=== PATIENT | male | born 1980 | race Caucasian/White ===

== ENCOUNTER 2017-01-06 02:03 | Emergency (ER) | payer OTHER ==
[~2017-01-06] VITALS: Ht 175.3 cm; Wt 136.1 kg
--- NOTE | ~2017-01-06 | CR63 ---
[facility]. [facility] A Service [facility] RADIOLOGY TEXT RESULTS PATIENT: ENDY MASON LOCATION: SED : 82 UNIT #: [id number] AGE: [address]: Kris Perez MD SEX: M ORDER DR: [id number] [place] [id number] E MR#: [id number] Acc #: [id number] NAME: ENDY MASON : 1980 SEX: M STUDY DATE/TIME: 01/06/2017 2:30 UNIT: SED ROOM: STUDY DESCRIPTION: CR Chest 2 View Attending Physician: Kris Perez M.D. Ordering Physician: Kris Perez M.D. Primary Care Physician: Armando Del Rio M.D. MEDICAL IMAGING REPORT This report is preliminary unless electronic signature is present. EXAM Two-view chest. INDICATIONS Cough for the past 3 days. PROCEDURE Frontal and lateral views of the chest. COMPARISON 11/21/2015 FINDINGS Heart size is normal. Ill-defined opacity in the medial right lung base. Otherwise lungs are clear with no pleural fluid or pneumothorax. IMPRESSION Ill-defined opacity in the medial right lung base could represent pulmonary vessels or the right lung base infiltrate. It is not clearly confirmed on the lateral view. Otherwise, lungs are clear. Dictated by... Amandeep Grant M.D. THIS IS AN ELECTRONICALLY VERIFIED REPORT Amandeep Grant M.D. at 01/06/2017 9:58 PM EED/pc TD: 01/06/2017 10:24 JOB #: [id number] MEDICAL IMAGING REPORT [facility] A Service [facility] RADIOLOGY TEXT RESULTS PATIENT: ENDY MASON LOCATION: SED : [birth year] UNIT #: [id number] AGE: [address]: Kris Perez MD SEX: M ORDER DR: Page 1 of 1
[~2017-01-06 02:03] MED LIST: ALPRAZOLAM PO; ALPRAZOLAM0.5 MG PO; BACITRACIN3.5 GM; BACITRACIN3.5 GM TOP; BACTRIM DS TABL1 TA1 PO; BUPROPION XL300 MG PO; CIPRO; CIPRO PO; DICYCLOMINE HCL20 MG PO; EFFEXOR75 MG PO; FLAGYL; FLAGYL PO; FLEXERIL10 MG PO; FLOMAX0.4 MG PO; LEVOTHYROXINE50 MC1 PO; LISINOPRIL-HCTZ1 T15 PO; LISINOPRIL-HCTZ1 T19 PO; LORTAB 7.5-5001 TAB PO; METRONIDAZOLE PO; NAPROSYN500 MG PO; PERCOCET5/325 PO; PHENERGAN PO; PHENERGAN25 MG PO; PRILOSEC20 MG PO; PROTONIX PO; ROBAXIN 750750 M1 DOB; VICODIN 5/1 TAB 5/50 PO; VISTARIL50 MG PO; XANAX0.5 MG PO
[2017-01-06] MEDS ORDERED: PREVACID PO (02:10)
== END 2017-01-06 02:59 | disposition home or self-care (01) ==
LOC: SED 02:03
DX: J18.1 Lobar pneumonia, unspecified organism (principal); I10 Essential (primary) hypertension; K21.9 Gastro-esophageal reflux disease without esophagitis; E03.9 Hypothyroidism, unspecified; K31.84 Gastroparesis; F17.200 Nicotine dependence, unspecified, uncomplicated; Z87.442 Personal history of urinary calculi; Z98.890 Other specified postprocedural states
CPT/HCPCS: 71020; 99283

== ENCOUNTER 2017-02-06 12:13 | Emergency (ER) | payer OTHER ==
--- NOTE | ~2017-02-06 | CR173 ---
[facility] A Service of [facility] & [facility] RADIOLOGY TEXT RESULTS PATIENT: ENDY MASON LOCATION: SED : [birth year] UNIT #: [id number] AGE: [address]: ELI SOSA SEX: M ORDER DR: [id number] [place] [id number] E MR#: [id number] Acc #: [id number] NAME: ENDY MASON : 1980 SEX: M STUDY DATE/TIME: 02/06/2017 12:38 UNIT: SED ROOM: STUDY DESCRIPTION: CR Knee 3 Views Rt Attending Physician: Eli Sosa Ordering Physician: Eli Sosa Primary Care Physician: Armando Del Rio M.D. MEDICAL IMAGING REPORT This report is preliminary unless electronic signature is present. EXAM Right knee, 3 views COMPARISON MRI right knee dated May 27, 2009. INDICATION 36-year-old male with right knee pain after misstepping while moving furniture today. FINDINGS Lateral view is limited by oblique positioning. This limits evaluation for suprapatellar effusion. Bones are anatomically aligned. There is no evidence of acute fracture. There is mild patellofemoral osteophyte formation. IMPRESSION No acute fracture or dislocation. Mild patellofemoral osteophyte formation. Dictated by... Juan Manuel Suarez M.D. THIS IS AN ELECTRONICALLY VERIFIED REPORT Juan Manuel Suarez M.D. at 02/08/2017 10:19 PM URI/elías TD: 02/06/2017 15:43 JOB #: [id number] MEDICAL IMAGING REPORT Page 1 of 1
--- NOTE | ~2017-02-06 | CR21 ---
[facility]. [facility] A Service of [facility] RADIOLOGY TEXT RESULTS PATIENT: ENDY MASON LOCATION: SED : [birth year] UNIT #: [id number] AGE: [address]: ELI SOSA SEX: M ORDER DR: [id number] [address] [address] [id number] E MR#: [id number] Acc #: [id number] NAME: ENDY MASON : 1980 SEX: M STUDY DATE/TIME: 02/06/2017 12:38 UNIT: SED ROOM: STUDY DESCRIPTION: CR Ankle Min 3 Views Rt Attending Physician: (Michaela) Eli Sosa Ordering Physician: Michaela Sosa Primary Care Physician: Armando Del Rio M.D. MEDICAL IMAGING REPORT This report is preliminary unless electronic signature is present. EXAM Right ankle, 3 views. COMPARISON May 27, 2009. INDICATIONS 36-year-old male with right ankle pain after misstepping while moving furniture today. FINDINGS There is an os trigonum, a normal anatomic variant. This measures 1.3 cm. There are calcium densities seen at the level of the anterior gusman and three such densities are favored measuring 9 mm, 8 mm and approximately 5 mm. They are immediately adjacent to a metallic linear foreign body, possibly a surgical clip. This measures 1.3 cm in length. There is chronic ossicle seen at the medial malleolus. This may be due to remote ligamentous injury. Bones are anatomically aligned. No evidence of acute fracture. IMPRESSION 1. No acute fracture or dislocation of the right ankle. 2. Calcium densities seen anterior to the mid tibia where an adjacent metallic foreign body is seen, possibly reflecting a surgical clip. These calcifications are benign and may represent phleboliths or other dystrophic calcification. 3. Rather large os trigonum measuring up to 1.3 cm. This is a normal anatomic variant, but could be a source of ongoing pain. 4. Small chronic ossicle seen adjacent the medial malleolus, perhaps due to remote ligamentous injury. [facility]. [facility] A Service of [facility] RADIOLOGY TEXT RESULTS PATIENT: ENDY MASON LOCATION: SED : [birth year] UNIT #: [id number] AGE: [address]: ELI SOSA SEX: M ORDER DR: Dictated by... Juan Manuel Suarez M.D. THIS IS AN ELECTRONICALLY VERIFIED REPORT Juan Manuel Suarez M.D. at 02/08/2017 10:20 PM Darius TD: 02/06/2017 15:51 JOB #: [id number] MEDICAL IMAGING REPORT Page 1 of 1
[~2017-02-06 12:13] MED LIST changes: +PREVACID PO
== END 2017-02-06 14:02 | disposition home or self-care (01) ==
LOC: SED 12:13
DX: S93.401A Sprain of unspecified ligament of right ankle, initial encounter (principal); S83.91XA Sprain of unspecified site of right knee, initial encounter; K31.84 Gastroparesis; I10 Essential (primary) hypertension; F17.210 Nicotine dependence, cigarettes, uncomplicated; Z87.442 Personal history of urinary calculi; Z79.899 Other long term (current) drug therapy; Z88.8 Allergy status to other drugs, medicaments and biological substances; X50.9XXA Other and unspecified overexertion or strenuous movements or postures, initial encounter; Y92.009 Unspecified place in unspecified non-institutional (private) residence as the place of occurrence of the external cause
CPT/HCPCS: 29530; 29540; 73562; 73610; 99283